=== PATIENT | female | born 2000 | race Caucasian/White ===

== ENCOUNTER 2021-12-06 09:46 | Emergency (ER) | payer BC, SELFPAY ==
[2021-12-06 09:48] VITALS: BP 114/82; PULSE 82; RESP 17; TEMP 35.9; O2SAT 100; BMI 23.3
--- NOTE | 2021-12-06 10:11 | EKG12_ITS ---
Test Reason : PALP Blood Pressure : / mmHG Vent. Rate : 075 BPM Atrial Rate : 075 BPM P-R Int : 124 ms QRS Dur : 076 ms QT Int : 382 ms P-R-T Axes : 000 049 045 degrees QTc Int : 426 ms Normal sinus rhythm Normal ECG Confirmed by BIRGIT PIERRE, PAULETTE ([id number]), copy editor DAIN SUAREZ ([id number]) on 12/07/2021 6:45:35 AM Referred By: BECKY Confirmed By:PAULETTE GENAO MD
--- NOTE | 2021-12-06 10:12 | NURSING ---
NO OLD EKGS
--- NOTE | 2021-12-06 10:22 | EDS_ITS ---
HPI <JERRICA Avina - Last Filed: 12/06/21 11:53> History of Present Illness Chief Complaint: Hypotension Narrative Narrative: 21-year-old female presents with low blood pressure. She states she gets episodes where she feels lightheaded, her heart flutters, and occasionally her vision becomes diane or has black spots. She has had these episodes since high school intermittently but they have become worse over the last month to the point where they are almost daily. Today she was at her job for half an hour when she started to feel lightheaded with palpitations. She used her own blood pressure cuff to check it and states it was 80/60 so they sent her home. Her symptoms lasted less than 20 minutes. There was no associated chest pain, shortness of breath, nausea, or vomiting. She also has had daily pressure headaches for the last year. She was evaluated by neurology with a normal MRI and takes duloxetine for this. PFSH <JERRICA Avina - Last Filed: 12/06/21 11:53> PFSH Allergy/AdvReac Type Severity Reaction Status Date / Time No Known Allergies Allergy Verified 12/06/21 09:47 Social History Smoking Status: Never smoker ROS <JERRICA Avina - Last Filed: 12/06/21 11:53> ROS ED ROS Narrative Constitutional: Negative for fever, chills, malaise. Eyes: Negative for visual change. ENT: Negative for sore throat, ear pain, rhinorrhea. CVS: Positive for palpitations. Negative for chest pain, syncope. Respiratory: Negative for shortness of breath, cough, orthopnea. GI: Negative for abdominal pain, nausea, vomiting, diarrhea, constipation, melena, hematochezia. : Negative for dysuria, hematuria or frequency. Neuro: Positive for headache, negative for motor/sensory dysfunction. Skin: Negative for rash, abscess, or wound. Musc: Negative for joint pain, swelling, trauma. Heme: Negative for easy bruising, bleeding, lymphadenopathy. EXAM <JERRICA Avina Last Filed: 12/06/21 11:53> Physical Exam Narrative Exam Narrative: CONST: Patient sitting in no acute distress. EYES: Normal inspection. ENT: Normal inspection, moist mucous membranes. NECK: Normal inspection. RESP: No respiratory distress, CTAB. CVS: Regular rate and rhythm, no murmur, no gallop. ABD: Soft and nontender, no guarding or rebound, nondistended, no hepatosplenomegaly. SKIN: Color normal, no rash, warm, dry, intact. EXTREMITIES: Normal appearance, no pedal edema. NEURO: Oriented x4. PSYCH: Normal affect. Const Vital Signs: 12/06/21 09:48 12/06/21 10:27 12/06/21 11:53 Temperature 96.7 F L Temperature Source Temporal Pulse Rate 82 81 Pulse Rate [Lying] 70 Pulse Rate [Sitting] 86 Pulse Rate [Standing] 89 Respiratory Rate 17 18 Blood Pressure 114/82 H 96/68 Blood Pressure [Lying] 98/63 Blood Pressure [Sitting] 103/76 Blood Pressure [Standing] 112/85 H Blood Pressure Mean 92 Blood Pressure Mean [Lying] 74 Blood Pressure Mean [Sitting] 85 Blood Pressure Mean [Standing] 94 Pulse Ox 100 Oxygen Delivery Method Room Air <Dr. Fredi Joiner DO - Last Filed: 12/06/21 16:02> Physical Exam Const Vital Signs: 12/06/21 09:48 12/06/21 10:27 12/06/21 11:53 Temperature 96.7 F L Temperature Source Temporal Pulse Rate 82 81 Pulse Rate [Lying] 70 Pulse Rate [Sitting] 86 Pulse Rate [Standing] 89 Respiratory Rate 17 18 Blood Pressure 114/82 H 96/68 Blood Pressure [Lying] 98/63 Blood Pressure [Sitting] 103/76 Blood Pressure [Standing] 112/85 H Blood Pressure Mean 92 Blood Pressure Mean [Lying] 74 Blood Pressure Mean [Sitting] 85 Blood Pressure Mean [Standing] 94 Pulse Ox 100 Oxygen Delivery Method Room Air [facility] <JERRICA Avina - Last Filed: 12/06/21 11:53> [facility] Narrative Medical decision making narrative: Patient presents with episodic lightheadedness and palpitations. She appears well nontoxic. Vital signs within normal limits. BP 114/82. Orthostatic vital signs are negative and actually increased upon standing. Her medical exam is unremarkable. Basic labs are within normal limits. EKG is normal sinus rhythm with normal intervals and no ischemic changes and high-sensitivity troponin within normal limits. I discussed that she needs to follow-up with her primary care doctor for further outpatient testing including likely a Holter monitor. She was counseled on signs that would warrant return and was discharged in stable condition. Diagnosis 1. Lightheadedness 2. Palpitations Lab Data Labs: Laboratory Results - last 24 hr 12/06/21 12/06/21 12/06/21 10:25 10:25 10:35 WBC 4.1 L RBC 4.88 Hgb 14.0 Hct 42.2 MCV 86.5 MCH 28.7 MCHC 33.2 RDW Std Deviation 38.3 RDW Coeff of Cinthya 12.1 Plt Count 231 MPV 10.2 Immature Gran % (Auto) 0.500 Neut % (Auto) 42.4 L Lymph % (Auto) 44.2 H Baca % (Auto) 10.2 H Eos % (Auto) 2.2 Baso % (Auto) 0.5 Absolute Neuts (auto) 1.8 L Absolute Lymphs (auto) 1.82 Nucleated RBC % 0 Sodium 137 Potassium 3.8 Chloride 106 Carbon Dioxide 27.0 Anion Gap 4 L BUN 15 Creatinine 0.82 Estim Creat Clear Calc 93.71 Est GFR (MDRD) Af Amer 113 Est GFR (MDRD) Non-Af 93 BUN/Creatinine Ratio 18.3 Glucose 87 Calcium 9.0 Troponin I High Sens < 3 L Urine Test Negative Radiography Chest X-Ray - ED: 1 View, Read by ED Physician, Read by Radiologist, Normal, Heart, Lungs, Mediastinum and Bony Structures Diagnostic Testing: Clinical Impression(s) from Imaging Studies Chest X-Ray 12/06/21 10:30 IMPRESSION: Normal x-ray examination of the chest. Electronically Signed: Gold García MD at 10:59 EST , EKG Initial EKG: Attestation: I personally reviewed and interpreted this EKG as follows: Comments: Normal sinus rhythm, normal intervals, no ischemic changes <Dr. Fredi Joiner, DO - Last Filed: 12/06/21 16:02> [facility] Narrative Medical decision making narrative: Patient was seen in conjunction with a PA. I agree with the History, Physical as well as workup. Patient seen and evaluated for lightheadedness and palpitations as well as no syncopal event. Patient reported that her blood pressure was low prior to arrival however her arrival pressure is 114/82. Orthostatic vital signs were obtained and her blood pressures actually increased with standing. She is not reported to be symptomatic by nursing. Her blood work up today is within normal limits and unchanged significantly from previous. EKG is sinus rhythm without sign of ischemia or dysrhythmia. Chest x-ray my interpretation does not cardiopulmonary process and the radiologist agree. hCG negative. Since her work-up is ultimately normal I feel she is safe to be discharged home. Patient given information regarding follow-up and possibility to monitor. She can return precautions as well. Lab Data Attestation: I reviewed the patient's lab results. Labs: Laboratory Results - last 24 hr 12/06/21 12/06/21 12/06/21 10:25 10:25 10:35 WBC 4.1 L RBC 4.88 Hgb 14.0 Hct 42.2 MCV 86.5 MCH 28.7 MCHC 33.2 RDW Std Deviation 38.3 RDW Coeff of Cinthya 12.1 Plt Count 231 MPV 10.2 Immature Gran % (Auto) 0.500 Neut % (Auto) 42.4 L Lymph % (Auto) 44.2 H Baca % (Auto) 10.2 H Eos % (Auto) 2.2 Baso % (Auto) 0.5 Absolute Neuts (auto) 1.8 L Absolute Lymphs (auto) 1.82 Nucleated RBC % 0 Sodium 137 Potassium 3.8 Chloride 106 Carbon Dioxide 27.0 Anion Gap 4 L BUN 15 Creatinine 0.82 Estim Creat Clear Calc 93.71 Est GFR (MDRD) Af Amer 113 Est GFR (MDRD) Non-Af 93 BUN/Creatinine Ratio 18.3 Glucose 87 Calcium 9.0 Troponin I High Sens < 3 L Urine Test Negative Radiography Diagnostic Testing: Clinical Impression(s) from Imaging Studies Chest X-Ray 12/06/21 10:30 IMPRESSION: Normal x-ray examination of the chest. Electronically Signed: Gold García MD at 10:59 EST , Discharge Plan Triage Chief Complaint: Hypotension ED Provider: Neisha Reed Dx/Rx/DC Orders Clinical Impression: Episodic lightheadedness Instructions: ED Dizziness, Uncertain Cause Primary Care Provider: Laurie Brothers NP Referrals: Laurie Brothers PATIENT CARE NURSING ASSISTANT, PATIENT CARE NURSING ASSISTANT-C [Primary Care Provider] - Activity Restrictions/Additional Instructions: Your lab work today was normal. Your EKG showed a normal heart rhythm and your blood pressures have been within the normal range while in the emergency room. I do not know the cause of your symptoms at this time but recommend you follow- up with your primary care doctor for a heart monitor and further testing. Please come back to the ER for new or worsening symptoms. Disposition Disposition: Home, Self Care Discharge Date/Time: 12/06/21 11:54
[2021-12-06 10:27] VITALS: BP 103/76; BP 112/85; BP 98/63; PULSE 70; PULSE 86; PULSE 89
--- NOTE | 2021-12-06 10:30 | RAD_ITS ---
STUDY: X-RAY CHEST REASON FOR EXAM: Female, 21 years old. Syncopal episodes. TECHNIQUE: Single AP portable view of the chest. COMPARISON: None. FINDINGS: EKG electrodes are seen. The lungs are clear and expanded. There is no demonstrated pleural abnormality. Normal size heart. Normal mediastinum and karla. Normal visualized pulmonary arteries. Normal visualized aortic arch and descending thoracic aorta. Normal visualized thoracic spine. Normal visualized ribs, clavicles, and shoulders. There is no demonstrated abnormality of the visualized soft tissue structures of the upper abdomen. RAD/Chest 1 View (Portable) IMPRESSION: Normal x-ray examination of the chest. Electronically Signed: Gold García MD at 10:59 EST ,
[2021-12-06 10:40] LABS: Absolute Lymphocyte Count 1.82 X10^3/uL (0.83-4.51); Absolute Neutrophil Count 1.8 X10^3/uL (2.0-7.7); Basophil# 0.02 X10^3/uL; Basophil% 0.5 % (0-1); Eosinophil# 0.09 X10^3/uL; Eosinophils% 2.2 % (0-5); Hematocrit 42.2 % (37-47); Lymphocyte # 1.82 X10^3/ul (0.83-4.51); Lymphocyte % 44.2 % (19-41); Mean Corp Hgb Conc 33.2 g/dL (32-36); Mean Corpuscular Hgb 28.7 pg (27.0-32.0); Mean Corpuscular Volume 86.5 fL (81-99); Mean Platelet Vol. 10.2 fl (6.2-12.0); Monocyte# 0.42 X10^3/uL; Monocyte% 10.2 % (0-10); NRBC Flagged by Analyzer 0 % (0-5); Neutrophil # 1.75 X10^3/uL (2.7-7.7); Neutrophil % 42.4 % (47-70); Platelet Count 231 K/mm3 (150-450); RBC Distribution Width CV 12.1 % (11.6-14.6); RBC Distribution Width SD 38.3 fl (35.1-43.9); Red Blood Count 4.88 M/mm3 (4.2-5.4); White Blood Count 4.1 K/mm3 (4.4-11.0)
[2021-12-06 10:48] LABS: Internal QC Validated? YES +Cl - CLEAR BKGD; Pregnancy, Urine Negative Negative
[2021-12-06 11:02] LABS: Anion Gap 4 (5-15); BUN 15 mg/dL (7-18); BUN/Creat Ratio 18.3 RATIO (10-20); Chloride 106 mmol/L (98-107); Creatinine, Serum 0.82 mg/dL (0.55-1.02); EST Glomerular Filtration Rate 93 mL/min (>60); Est Glom Filt Rate - Afr Amer 113 mL/min (>60); Estimated Creatinine Clearance 93.71 ml/min; Glucose 87 mg/dL (74-106); Potassium 3.8 mmol/L (3.5-5.1); Sodium Level 137 mmol/L (136-145); Troponin-I HS < 3 pg/mL (3.0-54.0)
[2021-12-06 11:53] VITALS: BP 96/68; PULSE 81; RESP 18
== END 2021-12-06 11:54 | disposition home or self-care (01) ==
PROVIDERS: Emergency Provider Physician Assistant; PCP Registered Nurse; Visit Provider Physician Assistant
DX: R42 Dizziness and giddiness (principal); R00.2 Palpitations
CPT/HCPCS: 71045; 80048; 81025; 84484; 85025; 93005; 99284; A4216